=== PATIENT | female | born 1955 | race Caucasian/White ===

== ENCOUNTER 2022-01-08 22:27 | Inpatient (IN) ==
--- NOTE | 2022-01-08 22:56 | Emergency Department Note ---
History of Present Illness General Chief complaint: Dental/Oral Stated complaint: ROOT CANAL POST OP SWELLING Time Seen by Provider: 01/08/22 22:40 History of Present Illness This is a 66-year-old female that presents to the emergency department via private vehicle with complaints of "root canal, postop swelling". Patient notes that she had a routine follow-up with her dentist about 3 weeks ago. It was noted via x-ray that she had an abnormality to one of the roots of her teeth, tooth #6. She notes that shortly thereafter she developed swelling and an abscess was suspected. She was started on clindamycin and was on this for several days. She notes that she then saw the incinerator plant laborer and had a root canal on Tuesday. She notes that swelling then began to the area on Tuesday and she has been on clindamycin since Tuesday. She has not missed any doses. She is been compliant with his medication. She is concerned now because the amount of right-sided facial swelling. She notes some minor drainage into the mouth. No fevers or chills. She has never had this happen before. No pain with movement of the eyes. Home Medications Medication Instructions Recorded Confirmed Type metoprolol succinate 50 mg 50 mg PO DAILY #90 tab 01/26/21 01/08/22 Rx tablet,extended release 24 hr clindamycin HCl 300 mg capsule 300 mg PO TID 01/08/22 01/08/22 History Allergies Allergy/AdvReac Type Severity Reaction Status Date / Time latex Allergy Intermediate Redness of Verified 01/08/22 22:50 Skin lisinopril Allergy Intermediate Cough Verified 01/08/22 22:50 Penicillins Allergy Intermediate Rash Verified 01/08/22 22:50 verapamil Allergy Unknown CAN'T Verified 01/08/22 22:50 REMEMBER ISOPOTIN Allergy Intermediate Rash Uncoded 01/08/22 22:50 Past Med/Surg History Medical History History of panic attacks no meds Hypertension Migraine Osteoarthritis Surgical History History of cataract extraction Left eye 07/24/2018-Dr. Clayton History of rhinoplasty History of surgery cyst removed off scalp Family History (Updated 12/03/19 @ 15:46 by Yannick Garcia MD) Father Family history of diabetes mellitus Prostate cancer Hypertension Grandmother Family history of diabetes mellitus maternal great grandmother Mother Leukemia Denies family history of Ovarian cancer Breast cancer Colorectal cancer Colonic polyp Social History Smoking Status: Never smoker Second Hand Exposure: No; Hx Alcohol Use: No Hx Substance Use: No Preferred Language: Lithuanian Communication Ability: Effective Radiation Control Technician Required: No Beliefs That Will Affect Care: None Current Living Situation: Family Current Living Situation Comment: Single 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) Feels Safe at Home: Yes Seatbelt Use: always Assistive Devices: Contacts and Glasses Review of Systems A total of 10 systems reviewed and were otherwise negative Physical Exam Vital Signs Vital Signs - 24 hr 01/08/22 22:35 01/09/22 01:18 01/09/22 02:23 Temperature 36.9 C Temperature Source Temporal Artery Scan Pulse Rate 96 H Pulse Rate [Left Finger] 86 95 H Respiratory Rate 18 20 20 Blood Pressure 167/91 H Blood Pressure [Right Arm] 153/72 H 131/84 Blood Pressure Mean 116 Blood Pressure Mean [Right Arm] 99 99 Pulse Oximetry 96 96 97 Oxygen Delivery Method Room Air Room Air Sepsis Recent Fever Within 48 Hours No Sepsis New/Unexplained Change in Mental Status No Sepsis Action Taken by Nursing No Action Required VITAL SIGNS - Vital signs and nursing notes were reviewed. Hypertensive, otherwise stable. Afebrile. GENERAL -66-year-old female appearing her stated age who is in no acute distress. Communicates well with provider and answers questions appropriately. SKIN -large amount of right-sided facial swelling most pronounced overlying the right premaxillary soft tissues that extends to the right inferior eyelid region as well as the right upper lip. HEAD - NC/AT. EYES - PERRL with EOMI bilaterally. Sclera anicteric. Palpebral conjunctiva pink and moist with no injection noted. EARS - No deformities of external structures noted on gross examination bilaterally. No pain elicited with palpation of the tragus bilaterally. External auditory canals without discharge or otorrhea. Tympanic membranes pearly sandy without retraction or bulging. No fluid or purulent material visualized behind the TM. Handle of malleus, umbo, cone of light, pars tensa/flaccid all easily visualized. NOSE - Midline and without cyanosis. No epistaxis or purulent drainage noted. Septum midline without deviation or septal hematoma noted. MOUTH/OROPHARYNX - Without perioral cyanosis. Buccal mucosa pink and moist and without leukoplakia. Tongue midline with equal elevation of palate bilaterally. No tonsillar hypertrophy, erythema, or exudates noted. Good dentition noted. Evidence of abscess superior to tooth #6. NECK - Neck with FROM. Supple to palpation. No lymphadenopathy noted. No nuchal rigidity. LUNGS - Chest wall symmetric without accessory muscle use, intercostals retractions, or central cyanosis. Normal vesicular breath sounds CTA B/L. No wheezes, rales, or rhonchi appreciated. CARDIAC - RRR with S1/S2. No murmur, rubs, or gallops appreciated. EXTREMITIES - No clubbing or peripheral cyanosis. +5/5 strength noted in UE/LE bilaterally. NEUROLOGIC - Cranial nerves II through XII grossly intact. PSYCH - A&Ox3 and cooperates fully with examiner. Pt is very pleasant and interacts well with examiner. Course Administered Medications Discontinued Medications Ioversol (Optiray 320 100ml) 94 ml IV ONCE ONE Stop: 01/09/22 00:43 Last Admin: 01/09/22 00:42 Dose: 94 ml Documented by: [id number] Medical Decision Making Laboratory Data Result diagrams: 01/08/22 23:17 01/08/22 23:17 Lab Results 01/08/22 01/08/22 01/08/22 Range/Units 23:17 23:17 23:17 WBC 15.96 H (4.8-10.8) K/uL RBC 4.58 (4.2-5.4) M/uL Hgb 14.3 (12.0-16.0) g/dL Hct 43.3 (37-47) % MCV 94.5 (80-100) fL MCH 31.2 (25-34) pg MCHC 33.0 (32-36) g/dL RDW Std Deviation 46.0 (36.4-46.3) fL RDW Coeff of Lindsey 13.3 (11.5-14.5) % Plt Count 330 (130-400) K/uL MPV 10.9 H (7.4-10.4) fL Immature Gran % (Auto) 0.3 % Neut % (Auto) 77.8 % Lymph % (Auto) 14.1 % [place] % (Auto) 6.7 % Eos % (Auto) 0.9 % Baso % (Auto) 0.2 % Neut # (Auto) 12.43 H (1.4-6.5) K/uL Lymph # (Auto) 2.25 (1.2-3.4) K/uL [place] # (Auto) 1.07 H (0.11-0.59) K/uL Eos # (Auto) 0.14 (0-0.5) K/uL Baso # (Auto) 0.03 (0-0.2) K/uL Immature Gran # (Auto) 0.04 H (0.00-0.02) K/uL Sodium 135 L (136-145) mmol/L Potassium 4.1 (3.5-5.1) mmol/L Chloride 100 (98-107) mmol/L Carbon Dioxide 26 (21-32) mmol/L Anion Gap 9 (3-11) BUN 11 (6-23) mg/dl Creatinine 0.85 (0.6-1.2) mg/dl Est Cr Clr Drug Dosing 69.5 ml/min Est GFR ( Amer) 83.3 ml/min Est GFR (Non-Af Amer) 71.9 ml/min BUN/Creatinine Ratio 12.9 (10-20) Glucose 112 H (70-99(Fasting)) mg/dl Calcium 9.8 (8.5-10.1) mg/dl Total Bilirubin 0.5 (0.2-1.0) mg/dl AST 27 (13-39) U/L ALT 28 (7-52) U/L Alkaline Phosphatase 104 (34-104) U/L Total Protein 8.4 H (6.0-8.3) gm/dl Albumin 4.6 (3.4-5.0) gm/dl Globulin 3.8 (2.5-4.0) gm/dl Albumin/Globulin Ratio 1.2 (0.9-2) Procalcitonin < 0.05 (0-0.5) ng/ml SARS-CoV-2, RNA, NAAT (NEGATIVE) 01/09/22 Range/Units 01:15 WBC (4.8-10.8) K/uL RBC (4.2-5.4) M/uL Hgb (12.0-16.0) g/dL Hct (37-47) % MCV (80-100) fL MCH (25-34) pg MCHC (32-36) g/dL RDW Std Deviation (36.4-46.3) fL RDW Coeff of Lindsey (11.5-14.5) % Plt Count (130-400) K/uL MPV (7.4-10.4) fL Immature Gran % (Auto) % Neut % (Auto) % Lymph % (Auto) % [place] % (Auto) % Eos % (Auto) % Baso % (Auto) % Neut # (Auto) (1.4-6.5) K/uL Lymph # (Auto) (1.2-3.4) K/uL [place] # (Auto) (0.11-0.59) K/uL Eos # (Auto) (0-0.5) K/uL Baso # (Auto) (0-0.2) K/uL Immature Gran # (Auto) (0.00-0.02) K/uL Sodium (136-145) mmol/L Potassium (3.5-5.1) mmol/L Chloride (98-107) mmol/L Carbon Dioxide (21-32) mmol/L Anion Gap (3-11) BUN (6-23) mg/dl Creatinine (0.6-1.2) mg/dl Est Cr Clr Drug Dosing ml/min Est GFR ( Amer) ml/min Est GFR (Non-Af Amer) ml/min BUN/Creatinine Ratio (10-20) Glucose (70-99(Fasting)) mg/dl Calcium (8.5-10.1) mg/dl Total Bilirubin (0.2-1.0) mg/dl AST (13-39) U/L ALT (7-52) U/L Alkaline Phosphatase (34-104) U/L Total Protein (6.0-8.3) gm/dl Albumin (3.4-5.0) gm/dl Globulin (2.5-4.0) gm/dl Albumin/Globulin Ratio (0.9-2) Procalcitonin (0-0.5) ng/ml SARS-CoV-2, RNA, NAAT NEGATIVE (NEGATIVE) Imaging Data Radiologist's Impression: CT FACIAL: Subperiosteal/soft tissue abscess along the right anterior maxilla measuring 2.1 x 1.2 x 2.4 cm (axial image 45, coronal images 15-21). Surrounding right-sided facial cellulitis and soft tissue swelling. Abscess appears to extend from the right lateral maxillary incisor (tooth 7). No acute fractures. Mild mucosal thickening right maxillary sinus. Radiologist: Maricel Montes De Oca M.D. Study ready at 00:55 and initial results transmitted at 01:07 MDM Narrative Patient was seen and evaluated as above in room C07. Review was performed of nursing notes and vital signs. I did review pertinent previous visits and patient history. After obtaining a thorough history and physical examination the above work up was performed. Patient presents to us today for evaluation of right-sided facial swelling in the setting of recent dental procedure. Vital signs reveal hypertension. She is afebrile. No evidence of Ana's angina. No evidence of orbital cellulitis clinically. No evidence of meningitis or encephalitis. Options of care were discussed with the patient. She has a large amount of right-sided facial swelling likely of dental origin. Concern now is for facial cellulitis with underlying abscess. Labs reveal leukocytosis 15.96. No anemia. No emergent metabolic disturbance. Pro-Jovany normal. CT scan was felt to be warranted and obtained of the space with IV contrast. Results of this as above. Facial cellulitis noted. The patient's abscess spontaneously drained. I do believe that she would benefit from inpatient management noting that she is already been on oral antibiotics in the outpatient setting and now has progressive right-sided facial swelling clinically felt to be cellulitic. Case discussed with the hospitalist. Please refer to further documentation regarding her stay. Patient amenable to plan of care. I did discuss several antibiotic options with the patient as well as the hospitalist team. Hospitalist team will initiate further antibiotics beyond her current outpatient regimen. GCS: 15 In the evaluation and treatment of this patient the following differential diagnoses were entertained: Facial cellulitis, Junior's angina, abscess, among others. Impression & Plan Cellulitis of face, Dental abscess Discharge Plan Visit Data Chief Complaint: Dental/Oral Stated Complaint: ROOT CANAL POST OP SWELLING ED Provider: Latrell Will ED Midlevel Provider: Sharif Gomes Discharge Problem: Cellulitis of face, Dental abscess Patient Disposition: Admitted As Inpatient Condition: Good Forms Stand Alone Forms: My [facility] [employer] Prescriptions Prescriptions: No Action metoprolol succinate 50 mg tablet extended release 24 hr 50 mg PO DAILY Qty: 90 RF: 3 clindamycin HCl 300 mg capsule 300 mg PO TID RF: 0 Referrals Referrals: Yannick Garcia MD [Primary Care Provider] -
[2022-01-08 23:43] LABS: Basophils # (auto) 0.03 K/uL (0-0.2); Basophils % (auto) 0.2 %; Eosinophils # (auto) 0.14 K/uL (0-0.5); Eosinophils % (auto) 0.9 %; Hematocrit (blood only) 43.3 % (37-47); Hemoglobin 14.3 g/dL (12.0-16.0); Immature Granulocytes # (auto) 0.04 K/uL (0.00-0.02); Immature Granulocytes % (auto) 0.3 %; Lymphocytes # (auto) 2.25 K/uL (1.2-3.4); Lymphocytes % (auto) 14.1 %; Mean Corpuscular Hemoglobin 31.2 pg (25-34); Mean Corpuscular Volume 94.5 fL (80-100); Mean Platelet Volume 10.9 fL (7.4-10.4); Monocytes # (auto) 1.07 K/uL (0.11-0.59); Monocytes % (auto) 6.7 %; Neutrophils # (auto) 12.43 K/uL (1.4-6.5); Neutrophils % (auto) 77.8 %; Platelet Count 330 K/uL (130-400); RDW Coefficient of Variation 13.3 % (11.5-14.5); Red Blood Count 4.58 M/uL (4.2-5.4); White Blood Count 15.96 K/uL (4.8-10.8)
[2022-01-09 00:04] LABS: Albumin Globulin Ratio 1.2 (0.9-2); Albumin Level 4.6 gm/dl (3.4-5.0); BUN Creatinine Ratio 12.9 (10-20); Bilirubin,Total 0.5 mg/dl (0.2-1.0); Calcium 9.8 mg/dl (8.5-10.1); Creatinine Clr Calc Pharmacy 69.5 ml/min; Est GFR (African American) 83.3 ml/min; Est GFR (Non-African American) 71.9 ml/min; Globulin 3.8 gm/dl (2.5-4.0); Potassium 4.1 mmol/L (3.5-5.1); Total Protein 8.4 gm/dl (6.0-8.3)
[2022-01-09] MEDS ORDERED: OPTIRAY 320 100ml IV ONE (00:42)
--- NOTE | 2022-01-09 01:30 | History & Physical Report ---
Date of Service January 09, 2022 Assessment & Plan (1) Hypertension: (2) Abscess of maxilla: (3) Failure of outpatient treatment: Plan: Gricelda Aleman is a 66-year-old female with past medical history of hypertension and migraines who presented today due to right-sided facial swelling and pain. Found to have right maxillary abscess. Maxillary abscess Failed outpatient treatment with clindamycin orally CT of her face showed subperiosteal/soft tissue abscess along the right anterior maxilla measuring 2.1 x 1.2 x 2.4 cm. Surrounding right facial cellulitis and soft tissue swelling. Abscess appears to extend from right lateral maxillary incisor (tooth 7). No acute fractures. Mild mucosal thickening right maxillary sinus. Due to penicillin allergy will start on vancomycin and aztreonam IV Consult oral maxillofacial surgery N.p.o. for now, may take meds Pain control as needed Admit to med telemetry Hypertension Continue home metoprolol DVT prophylaxis: SCDs, hold chemoprophylaxis in case of surgical intervention Diet: NPO, NSS at 80 cc/h Dispo: Admit to med telemetry CODE STATUS: Full History of Present Illness Primary Care Provider: Yannick Garcia MD Gricelda Aleman is a 66-year-old female with past medical history of hypertension and migraines who presented today due to right-sided facial swelling and pain. Patient had seen her dentist about 3 weeks ago and was noted to have issues with the root of tooth #6 at that time. Shortly after, she developed pain and swelling of the area and was started on clindamycin. She then underwent root canal this past Tuesday. On Tuesday, again developed tooth pain and swelling and was restarted on clindamycin. Today, she continued to have worsening swelling and pain. In ED, patient's labs showed white count of 15.96, normal hemoglobin and platelets. She had normal electrolytes and negative COVID testing. A CT of her face showed subperiosteal/soft tissue abscess along the right anterior maxilla measuring 2.1 x 1.2 x 2.4 cm. Surrounding right facial cellulitis and soft tissue swelling. Abscess appears to extend from right lateral maxillary incisor (tooth 7). No acute fractures. Mild mucosal thickening right maxillary sinus. Patient states that she began to have drainage into her mouth during her CT. She has been spitting it out into a cup. Denies fever, chills, nausea, vomiting, shortness of breath, cough, abdominal pain, headache, dizziness, vision changes, eye pain, weakness, numbness. Allergies Allergy/AdvReac Type Severity Reaction Status Date / Time latex Allergy Intermediate Redness of Verified 01/08/22 22:50 Skin lisinopril Allergy Intermediate Cough Verified 01/08/22 22:50 Penicillins Allergy Intermediate Rash Verified 01/08/22 22:50 verapamil Allergy Unknown CAN'T Verified 01/08/22 22:50 REMEMBER ISOPOTIN Allergy Intermediate Rash Uncoded 01/08/22 22:50 Home Medications Medication Instructions Recorded Confirmed Type metoprolol succinate 50 mg 50 mg PO DAILY #90 tab 01/26/21 01/08/22 Rx tablet,extended release 24 hr clindamycin HCl 300 mg capsule 300 mg PO TID 01/08/22 01/08/22 History Past Med/Surg History Medical History History of panic attacks no meds Hypertension Migraine Osteoarthritis Surgical History History of cataract extraction Left eye 07/24/2018-Dr. Clayton History of rhinoplasty History of surgery cyst removed off scalp Family History (Updated 12/03/19 @ 15:46 by Yannick Garcia MD) Father Family history of diabetes mellitus Prostate cancer Hypertension Grandmother Family history of diabetes mellitus maternal great grandmother Mother Leukemia Denies family history of Ovarian cancer Breast cancer Colorectal cancer Colonic polyp Social History Smoking Status: Never smoker Second Hand Exposure: No; Hx Alcohol Use: No Hx Substance Use: No Preferred Language: Marshallese Communication Ability: Effective Motion Study Technician Required: No Beliefs That Will Affect Care: None Current Living Situation: Family Current Living Situation Comment: Single 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 NAD. HEENT: PERRL, EOMI. Moist mucous membranes. Right-sided facial swelling extending from lower eyelid to right upper lip including soft tissue overlying right maxillary area. Mouth with pink and moist oral mucosa, swelling along upper right gumline with scant drainage. NECK: No JVD. No lymphadenopathy. CHEST/LUNGS: CTAB A/P. No crackles, wheezes, rales, rhonchi. HEART: RRR. No m/g/r. ABDOMEN: NT/ND, soft. BS+ x4 EXTREMITIES: No cyanosis, no clubbing, no edema SKIN: Warm and dry. No rashes or lesions. PSYCHIATRIC: Euthymic affect, no SI, no pressured speech, no hallucinations NEUROLOGIC: No FND. CN II-XII grossly intact. Results & Data Results & Data ([facility]) Vital Signs (Past 12 Hours) Vital Signs Temp Pulse Pulse Resp BP BP Pulse Ox 01/09/22 01:18 86 20 153/72 H 96 01/08/22 22:35 36.9 C 96 H 18 167/91 H 96 Supervising Physician Co-Signing Physician Notes Attending addendum: I have physically seen this patient, have supervised the medical residents activities, and agree with the H&P unless as otherwise noted. Assessment and Plan: Right facial cellulitis/abscess- Failure of outpatient treatment with clindamycin pre and post root canal Penicillin allergy Placed on vancomycin IV and aztreonam IV NPO IV fluids Pain control as noted Consult maxillofacial surgery Hypertension- Continue metoprolol succinate 50 mg p.o. daily with hold parameters Remaining orders and notations as noted Resident Activity Tracking Resident Involvement: Resident Care Provided Care Provided: Adult Hospital Medicine
[2022-01-09] MEDS ORDERED: VANCOMYCIN CONSULT ACTIVE PRN (02:40)
[2022-01-09] MEDS ORDERED: ONDANSETRON INJ 2 MG/ML 2 ML VIAL IV PRN (02:40)
[2022-01-09] MEDS ORDERED: VANCOMYCIN HCL 1,750 MG in SODIUM CHLORIDE 0.9% 500 ML IV ONE (03:30)
[2022-01-09] MEDS: SODIUM CHLORIDE 0.9% 1000ML 1,000 ML IV SCH ×2 (03:45→16:43)
[2022-01-09] MEDS: AZTREONAM 1,000 MG in DEXTROSE 5% 100 ML IV SCH ×3 (04:25→19:44)
[2022-01-09] MEDS ORDERED: METOPROLOL SUCC 50MG EXT REL TAB PO SCH (09:00)
--- NOTE | 2022-01-09 09:53 | CT Scan Report ---
CT facial bones w con CLINICAL HISTORY: R side facial swelling, Tooth #6 root canal COMPARISON STUDY: No previous studies for comparison. CT DOSE: 697.98 mGy.cm TECHNIQUE: Standard CT of the Facial Bones and Orbits was performed with 94 mL of Optiray 320 IV con trast. A dose lowering technique was utilized adhering to the principles of ALARA. FINDINGS: Bones: There are no displaced fractures identified. The orbital rims are intact bilaterally. The zygo matic arches are intact bilaterally. Nasal bones are intact. The nasal septum is in the midline. The mandible and maxilla are intact. There is imaging artifact present related to dental fillings. Paranasal sinuses: There is mild mucosal thickening of the right maxillary antrum. The remaining para nasal sinuses are clear. Soft tissues: There is evidence for an irregular wall enhancing fluid collection adjacent to the righ t maxilla measuring approximately 1.4 x 1.9 x 1.7 cm in craniocaudad, AP and transverse diameters res pectively. This is most characteristic of an abscess. Surrounding cellulitis is present. IMPRESSION: 1. Evidence for a wall enhancing abscess adjacent to the right maxilla with surrounding cellulitis. 2. Mild mucosal thickening of the right maxillary antrum. ACT 112: Negative or not required by law. Electronically signed by: Jhonatan Plata M.D. 01/09/2022 9:51 AM
--- NOTE | 2022-01-09 11:24 | Hospitalist Progress Note ---
Date of Service January 09, 2022 Assessment & Plan (1) Abscess of maxilla: Plan: Patient had a recent dental procedure and developed an abscess. Treated outpatient with Clindamycin, however progressively worsened so she came to the hospital CT face showed Evidence of a wall enhancing abscess adjacent to the right maxilla with surrounding cellulitis. Overnight, patient said some abscess drained spontaneously will continue empiric antibiotics Maxillofacial surgery input will be appreciated (2) Cellulitis of face: Plan: Continue management as above (3) Hypertension: Plan: BP is under good control, 124/79 today continue home meds (4) Dental abscess: Plan: continue hospital management Admission and Anticipated Discharge Date Admission Date: January 09, 2022 Subjective patient seen and examined, says she had some abscess drain spontaneously yesterday Review of Systems Review of Systems: All systems reviewed are negative, apart from the ones contained in the history. Physical Exam Physical Exam: The patient is awake, alert and oriented 3, well developed and well nourished, normocephalic and atraumatic, lying in bed and in no acute distress. HEENT--maxillary swelling Neck--supple. No JVD. No bruits. Thyroid normal, trachea midline, no adenopathy. Heart--normal S1 and S2. No murmurs, rubs or gallops. Lungs--clear bilaterally, no respiratory distress, no accessory muscle use. Abdomen--normal bowel sounds and soft. Mild epigastric and left sided abdominal pain Extremities--no cyanosis or clubbing. No edema. Dermatologic--normal skin turgor, normal color, no abnormal lymph nodes, no rash. Neurologic--cranial nerves II through XII grossly intact. Rheumatologic--normal range of motion. Psychiatric--normal affect. Results & Data Results & Data ([facility]) Vital Signs (Past 12 Hours) Vital Signs Temp Pulse Pulse Resp BP BP BP 01/09/22 07:23 99.0 F 89 18 124/79 01/09/22 02:47 94 H 01/09/22 02:40 01/09/22 02:33 98.6 F 89 16 154/82 H 01/09/22 02:24 95 H 20 131/84 01/09/22 02:23 95 H 20 131/84 01/09/22 01:18 86 20 153/72 H Pulse Ox Pulse Ox 01/09/22 07:23 95 01/09/22 02:47 01/09/22 02:40 96 01/09/22 02:33 96 01/09/22 02:24 97 01/09/22 02:23 97 01/09/22 01:18 96 Laboratory Results Laboratory Results - last 24 hr 01/08/22 01/08/22 01/08/22 23:17 23:17 23:17 WBC 15.96 H RBC 4.58 Hgb 14.3 Hct 43.3 MCV 94.5 MCH 31.2 MCHC 33.0 RDW Std Deviation 46.0 RDW Coeff of Lindsey 13.3 Plt Count 330 MPV 10.9 H Immature Gran % (Auto) 0.3 Neut % (Auto) 77.8 Lymph % (Auto) 14.1 [place] % (Auto) 6.7 Eos % (Auto) 0.9 Baso % (Auto) 0.2 Neut # (Auto) 12.43 H Lymph # (Auto) 2.25 [place] # (Auto) 1.07 H Eos # (Auto) 0.14 Baso # (Auto) 0.03 Immature Gran # (Auto) 0.04 H Sodium 135 L Potassium 4.1 Chloride 100 Carbon Dioxide 26 Anion Gap 9 BUN 11 Creatinine 0.85 Est Cr Clr Drug Dosing 69.5 Est GFR ( Amer) 83.3 Est GFR (Non-Af Amer) 71.9 BUN/Creatinine Ratio 12.9 Glucose 112 H Calcium 9.8 Total Bilirubin 0.5 AST 27 ALT 28 Alkaline Phosphatase 104 Total Protein 8.4 H Albumin 4.6 Globulin 3.8 Albumin/Globulin Ratio 1.2 Procalcitonin < 0.05 SARS-CoV-2, RNA, NAAT 01/09/22 01:15 WBC RBC Hgb Hct MCV MCH MCHC RDW Std Deviation RDW Coeff of Lindsey Plt Count MPV Immature Gran % (Auto) Neut % (Auto) Lymph % (Auto) [place] % (Auto) Eos % (Auto) Baso % (Auto) Neut # (Auto) Lymph # (Auto) [place] # (Auto) Eos # (Auto) Baso # (Auto) Immature Gran # (Auto) Sodium Potassium Chloride Carbon Dioxide Anion Gap BUN Creatinine Est Cr Clr Drug Dosing Est GFR ( Amer) Est GFR (Non-Af Amer) BUN/Creatinine Ratio Glucose Calcium Total Bilirubin AST ALT Alkaline Phosphatase Total Protein Albumin Globulin Albumin/Globulin Ratio Procalcitonin SARS-CoV-2, RNA, NAAT NEGATIVE Diagnostic Findings Face CT 01/08/22 22:50 CT facial bones w con CLINICAL HISTORY: R side facial swelling, Tooth #6 root canal COMPARISON STUDY: No previous studies for comparison. CT DOSE: 697.98 mGy.cm TECHNIQUE: Standard CT of the Facial Bones and Orbits was performed with 94 mL of Optiray 320 IV contrast. A dose lowering technique was utilized adhering to the principles of ALARA. FINDINGS: Bones: There are no displaced fractures identified. The orbital rims are intact bilaterally. The zygomatic arches are intact bilaterally. Nasal bones are intact. The nasal septum is in the midline. The mandible and maxilla are intact. There is imaging artifact present related to dental fillings. Paranasal sinuses: There is mild mucosal thickening of the right maxillary antrum. The remaining paranasal sinuses are clear. Soft tissues: There is evidence for an irregular wall enhancing fluid collection adjacent to the right maxilla measuring approximately 1.4 x 1.9 x 1.7 cm in craniocaudad, AP and transverse diameters respectively. This is most characteristic of an abscess. Surrounding cellulitis is present. IMPRESSION: 1. Evidence for a wall enhancing abscess adjacent to the right maxilla with surrounding cellulitis. 2. Mild mucosal thickening of the right maxillary antrum. ACT 112: Negative or not required by law. Electronically signed by: Jhonatan Plata M.D. 01/09/2022 9:51 AM PG Care Time/CCT Total # of Minutes Spent Total Time Spent with Patient: Total time spent is greater than 50% in coordination of care (as documented) at patient's floor/unit and/or counseling patient: Coding Level of Care Code 99205 Subseq Hosp Care Lvl 2 Diagnoses Abscess of maxilla M27.2 Cellulitis of face L03.211 Hypertension I10 Dental abscess K04.7 Time Spent (min) 35
--- NOTE | 2022-01-09 11:30 | Pharmacy Report ---
Pharmacy Abx Initial Consult - Date of Service January 09, 2022 - Pharmacy Dosing Scope Date of Consult: 01/09 Consultation requested by: Dr. Olivera Pharmacy is consulted to initiate vancomycin IV/PO dosing therapy, order appropriate labs and adjust drug dose/frequency. - Subjective The patient is a 66 year old F admitted on 01/09/22 01:40. - Objective Height: 5 ft 7 in Weight: 74.1 kg Vital Signs (Past 12hrs): Vital Signs Temp Pulse Pulse Resp BP BP BP 01/09/22 07:23 37.2 C 89 18 124/79 01/09/22 02:47 94 H 01/09/22 02:40 01/09/22 02:33 37.0 C 89 16 154/82 H 01/09/22 02:24 95 H 20 131/84 01/09/22 02:23 95 H 20 131/84 01/09/22 01:18 86 20 153/72 H Pulse Ox Pulse Ox 01/09/22 07:23 95 01/09/22 02:47 01/09/22 02:40 96 01/09/22 02:33 96 01/09/22 02:24 97 01/09/22 02:23 97 01/09/22 01:18 96 Lab Results (24hrs): Laboratory Tests (24 Hours) 01/08/22 01/08/22 01/08/22 23:17 23:17 23:17 WBC 15.96 H Neut # (Auto) 12.43 H Creatinine 0.85 Est Cr Clr Drug Dosing 69.5 Procalcitonin < 0.05 - Assessment & Plan Assessment 66 year old F receiving vancomycin + Azactam for facial cellulitis Failed outpatient clindamycin therapy Surgery consulted Allergy to PCN (rxn: rash) Vanc + Azactam initiated Vancomycin Target AUC/LAURIE of 400-600 mg/L.hr * AUC/LAURIE is the preferred PK/PD target for vancomycin * AUC guided dosing is effective and associated with decreased risk of nephrotoxicity compared to traditional trough targets * Vancomycin 1g IV q12h will be started today at 1600 following vancomycin 1750mg load * Trough level ordered for 01/10 @1530 Azactam * Pharmacy not consulted but dosed appropriately given patient's indication/renal function Pharmacy will continue to follow and will adjust dose/frequency as necessary. Thank you.
[2022-01-09] MEDS: VANCOMYCIN HCL 1,000 MG in SODIUM CHLORIDE 0.9% 250 ML IV SCH (16:43)
[2022-01-09] MEDS: METOPROLOL SUCC 50MG EXT REL TAB PO SCH (17:29)
--- NOTE | 2022-01-09 20:38 | Billing Data ---
Date of Service January 09, 2022 Coding Level of Care Code 64298 Initial Inpt Care Lvl 3
[2022-01-10] MEDS: VANCOMYCIN HCL 1,000 MG in SODIUM CHLORIDE 0.9% 250 ML IV SCH (04:30)
[2022-01-10] MEDS: AZTREONAM 1,000 MG in DEXTROSE 5% 100 ML IV SCH ×2 (05:05→15:45)
[2022-01-10] MEDS: SODIUM CHLORIDE 0.9% 1000ML 1,000 ML IV SCH ×2 (05:12→20:30)
[2022-01-10 08:17] LABS: Basophils # (auto) 0.02 K/uL (0-0.2); Basophils % (auto) 0.3 %; Eosinophils % (auto) 2.7 %; Hematocrit (blood only) 37.6 % (37-47); Hemoglobin 12.3 g/dL (12.0-16.0); Immature Granulocytes # (auto) 0.01 K/uL (0.00-0.02); Immature Granulocytes % (auto) 0.1 %; Lymphocytes # (auto) 2.42 K/uL (1.2-3.4); Lymphocytes % (auto) 32.2 %; Mean Corpuscular Hemoglobin 30.6 pg (25-34); Mean Corpuscular Hgb Conc 32.7 g/dL (32-36); Mean Corpuscular Volume 93.5 fL (80-100); Monocytes # (auto) 0.67 K/uL (0.11-0.59); Monocytes % (auto) 8.9 %; Neutrophils % (auto) 55.8 %; Platelet Count 282 K/uL (130-400); RDW Coefficient of Variation 13.5 % (11.5-14.5); RDW Standard Deviation 46.7 fL (36.4-46.3); Red Blood Count 4.02 M/uL (4.2-5.4); White Blood Count 7.52 K/uL (4.8-10.8)
[2022-01-10 08:44] LABS: BUN Creatinine Ratio 16.4 (10-20); Calcium 8.6 mg/dl (8.5-10.1); Creatinine Clr Calc Pharmacy 74.7 ml/min; Est GFR (African American) 100.2 ml/min; Est GFR (Non-African American) 86.4 ml/min; Potassium 3.8 mmol/L (3.5-5.1)
--- NOTE | 2022-01-10 12:53 | Hospitalist Progress Note ---
Date of Service January 10, 2022 Assessment & Plan (1) Abscess of maxilla: Plan: Gricelda Aleman is a 66-year-old female with past medical history of hypertension and migraines who presented due to right-sided facial swelling and pain. Found to have right maxillary abscess. Maxillary abscess Failed outpatient treatment with clindamycin orally CT of her face showed subperiosteal/soft tissue abscess along the right anterior maxilla measuring 2.1 x 1.2 x 2.4 cm. Surrounding right facial cellulitis and soft tissue swelling. Abscess appears to extend from right lateral maxillary incisor (tooth 7). No acute fractures. Mild mucosal thickening right maxillary sinus. Due to penicillin allergy was started on vancomycin and aztreonam IV oral maxillofacial surgery consulted, pending evaluation No surgical intervention anticipated on holiday, patient is slightly improved since drainage n.p.o. at midnight Pain control as needed Admit to med telemetry Patient acutely improved following spontaneous drainage in ER, but does remain with swelling and scant drainage. We will continue IV antibiotics and OMFS consultation. Minimal anaerobe coverage with aztreonam. If worsening can add adjunct Flagyl for anaerobe coverage vs Levo Hypertension Continue home metoprolol DVT prophylaxis: SCDs, hold chemoprophylaxis in case of surgical intervention Diet: Clears, n.p.o. at midnight Dispo: Admit to med telemetry CODE STATUS: Full (2) Hypertension: (3) Failure of outpatient treatment: Admission and Anticipated Discharge Date Admission Date: January 09, 2022 Subjective Odette is seen at the bedside this morning. She has not had fever, chills, sweats, shortness of breath, difficulty breathing, wheezing overnight. She has had spontaneous drainage from her right upper tooth which has slowed/stopped since transfer from the ER. Reports the large amount of swelling is greatly reduced, but still somewhat present. She does not have facial tenderness or tenderness when biting down this morning. No trismus. She reports she is concerned given the severity of the initial infection, and would prefer cautious management. Does have a history of penicillin allergy, reports she had a skin rash which involved her neck, but not her lip/tongue. Review of Systems Review of Systems: All systems reviewed & are unremarkable except as noted in Subjective Physical Exam Physical Exam: General: A&Ox3. NAD. Cooperative. HEENT: Right facial swelling remains present underlying nasolabial fold, reportedly improved per patient, no overlying erythema. No tenderness on palpation. Oral exam shows scant purulence at the gumline of upper right canine with small amount expressed on firm facial palpation. Pulm: CTAB A&P. -wheezes, -rales, -rhonchi. Symmetrical chest rise. No increase in work of breathing. No respiratory distress. Cardiac: RRR, -mrg. Radial pulses intact and symmetrical. Abdominal: Nontender, nondistended, soft. BS present. Results & Data Results & Data ([facility]) Vital Signs (Past 12 Hours) Vital Signs Temp Pulse Pulse Resp BP BP Pulse Ox 01/10/22 11:59 36.9 C 81 18 134/63 95 01/10/22 08:20 82 01/10/22 06:29 36.9 C 85 18 128/76 94 01/10/22 02:29 36.8 C 85 18 134/80 95 PG Care Time/CCT Total # of Minutes Spent Total Time Spent with Patient: Total time spent is greater than 50% in coordination of care (as documented) at patient's floor/unit and/or counseling patient: Coding Level of Care Code 40728 Subseq Hosp Care Lvl 2 Diagnoses Hypertension I10 Abscess of maxilla M27.2 Failure of outpatient treatment Z78.9
[2022-01-10] MEDS ORDERED: cefTRIAXone SODIUM 2,000 MG in DEXTROSE 5% 50 ML IV SCH (14:00)
[2022-01-10] MEDS: metroNIDAZOLE 500 MG TAB PO SCH ×2 (14:01→20:29)
[2022-01-10] MEDS ORDERED: VANCOMYCIN TROUGH ONE (15:30)
[2022-01-10] MEDS: METOPROLOL SUCC 50MG EXT REL TAB PO SCH (15:45)
[2022-01-10] MEDS ORDERED: METOPROLOL SUCC 50MG EXT REL TAB PO SCH ×2 (18:30→21:00)
[2022-01-11] MEDS ORDERED: Nursing to Pharmacy Communication SCH (01:45)
[2022-01-11 06:01] LABS: Basophils # (auto) 0.02 K/uL (0-0.2); Basophils % (auto) 0.2 %; Eosinophils % (auto) 2.3 %; Hematocrit (blood only) 38.3 % (37-47); Hemoglobin 12.7 g/dL (12.0-16.0); Immature Granulocytes # (auto) 0.03 K/uL (0.00-0.02); Immature Granulocytes % (auto) 0.3 %; Lymphocytes # (auto) 2.83 K/uL (1.2-3.4); Mean Corpuscular Hemoglobin 30.9 pg (25-34); Mean Corpuscular Hgb Conc 33.2 g/dL (32-36); Mean Corpuscular Volume 93.2 fL (80-100); Mean Platelet Volume 10.2 fL (7.4-10.4); Monocytes # (auto) 0.69 K/uL (0.11-0.59); Monocytes % (auto) 7.8 %; Neutrophils # (auto) 5.08 K/uL (1.4-6.5); Neutrophils % (auto) 57.4 %; Platelet Count 304 K/uL (130-400); RDW Coefficient of Variation 13.2 % (11.5-14.5); RDW Standard Deviation 45.3 fL (36.4-46.3); Red Blood Count 4.11 M/uL (4.2-5.4); White Blood Count 8.85 K/uL (4.8-10.8)
[2022-01-11 06:38] LABS: BUN Creatinine Ratio 16.2 (10-20); Calcium 8.7 mg/dl (8.5-10.1); Creatinine Clr Calc Pharmacy 79.9 ml/min; Est GFR (African American) 98.5 ml/min; Potassium 3.7 mmol/L (3.5-5.1)
[2022-01-11] MEDS ORDERED: BENZOCAINE 20% (ORAJEL) 11.9 GM TUBE MT PRN (07:47)
[2022-01-11] MEDS: metroNIDAZOLE 500 MG TAB PO SCH (07:51)
[2022-01-11] MEDS: SODIUM CHLORIDE 0.9% 1000ML 1,000 ML IV SCH (07:52)
--- NOTE | 2022-01-11 12:28 | Discharge Summary ---
Date of Service January 11, 2022 Admission HPI Per Admitting Provider Gricelda Aleman is a 66-year-old female with past medical history of hypertension and migraines who presented today due to right-sided facial swelling and pain. Patient had seen her dentist about 3 weeks ago and was noted to have issues with the root of tooth #6 at that time. Shortly after, she developed pain and swelling of the area and was started on clindamycin. She then underwent root canal this past Tuesday. On Tuesday, again developed tooth pain and swelling and was restarted on clindamycin. Today, she continued to have worsening swelling and pain. In ED, patient's labs showed white count of 15.96, normal hemoglobin and platelets. She had normal electrolytes and negative COVID testing. A CT of her face showed subperiosteal/soft tissue abscess along the right anterior maxilla measuring 2.1 x 1.2 x 2.4 cm. Surrounding right facial cellulitis and soft tissue swelling. Abscess appears to extend from right lateral maxillary incisor (tooth 7). No acute fractures. Mild mucosal thickening right maxillary sinus. Patient states that she began to have drainage into her mouth during her CT. She has been spitting it out into a cup. Denies fever, chills, nausea, vomiting, shortness of breath, cough, abdominal pain, headache, dizziness, vision changes, eye pain, weakness, numbness. Principal Diagnosis Maxillary Abscess with spontaneous drainage Discharge Exam General: A&Ox3. NAD. Cooperative. HEENT: Trace Right facial swelling greatlyimproved, no overlying erythema. No tenderness on palpation. Oral exam without purulence/drainage Pulm: CTAB A&P. -wheezes, -rales, -rhonchi. Symmetrical chest rise. No increase in work of breathing. No respiratory distress. Cardiac: RRR, -mrg. Radial pulses intact and symmetrical. Abdominal: Nontender, nondistended, soft. BS present. Discharge Data Allergies Allergy/AdvReac Type Severity Reaction Status Date / Time latex Allergy Intermediate Redness of Verified 01/08/22 22:50 Skin lisinopril Allergy Intermediate Cough Verified 01/08/22 22:50 Penicillins Allergy Intermediate Rash Verified 01/08/22 22:50 verapamil Allergy Unknown CAN'T Verified 01/08/22 22:50 REMEMBER ISOPOTIN Allergy Intermediate Rash Uncoded 01/08/22 22:50 Consultations 01/09/22 01:30 ED Decision to Admit Stat 01/09/22 01:40 Consult Oromaxillofacial Surgery Routine Ordered Studies 01/08/22 22:50 CT facial bones w con Urgent Hospital Course (1) Abscess of maxilla: Gricelda Aleman is a 66-year-old female with past medical history of hypertension and migraines who presented due to right-sided facial swelling and pain. Found to have right maxillary abscess. Maxillary abscess Failed outpatient treatment with clindamycin orally CT of her face showed subperiosteal/soft tissue abscess along the right anterior maxilla measuring 2.1 x 1.2 x 2.4 cm. Surrounding right facial cellulitis and soft tissue swelling. Abscess appears to extend from right lateral maxillary incisor (tooth 7). No acute fractures. Mild mucosal thi ckening right maxillary sinus. Due to penicillin allergy was started on vancomycin and aztreonam IV. Patient was clinically improving and had spontaneous drainage of her abscess the first night of admission Case reviewed with oromaxillofacial surgery, patient did have spontaneous drainage of abscess and clinically improved on antibiotics. Was converted to Rocephin/Flagyl continue to improve, was discharged to complete 1 week of cefdinir/Flagyl with next day follow-up to OMFS No surgical intervention anticipated on holiday, patient is slightly improved since drainage Routine follow-up to PCP, should have repeat CBC/BMP in approximately 1 week Hypertension (2) Hypertension: (3) Failure of outpatient treatment: Total Time Total Time Spent Total Time Spent (In Minutes): Time spend day of discharge 35 minutes including direct patient care, documentation, review of labs and images, and coordination of care. Discharge Plan Discharge Items Patient Disposition: Home - Self-Care Reason For Visit: MAXILLARY ABSCESS Discharge Diagnosis: Maxillary Abscess Condition on Discharge: Good Activity: Per Instructions section Non-emergency contact: Primary Care Provider and Specialist Call non-emergency contact if: you have any medication questions, your symptoms worsen, your pain is not controlled and your pain is worsening Follow-up/Referrals: Yannick Garcia MD [Primary Care Provider] - Garland Thornton DMD [Physician] - Diet: Regular Addtl Attending Provider Instructions: You are seen in the hospital for a maxillary abscess following root canal. Your abscess spontaneously drained, and continue to improve on antibiotics. You porter ve been converted to oral antibiotics as noted below. Been prescribed an antibiotic, cefdinir. Please continue cefdinir 300 mg twice daily for 7 days. You have been prescribed an antibiotic, metronidazole (Flagyl). Please take Flagyl 500 mg 3 times daily for 7 days. Your abscess was spontaneously draining and did not require surgical intervention at the time of hospitalization. Your case was reviewed with oromaxillofacial surgery who did not recommend further surgical drainage. A follow-up appointment for reassessment is being scheduled for you with oral maxillofacial surgery, Dr. Garland Thornton. It is anticipated you will have an appointment tomorrow 01/12/2022 in his office for reassessment. You should receive a call to confirm this appointment, if you do not recieve a call please contact his office at [phone]. If you develop any new or worsening symptoms including fever, chills, sweats, chest pain, chest pressure, difficulty breathing, uncontrolled nausea/vomiting, rash, wheezing, passing out or nearly passing out, bleeding, black/bloody bowel movements, or other new or concerning symptoms please call your primary care physician, or call 911 for re-evaluation in the emergency department if you are very concerned. Pending Studies at Discharge: No Stand-Alone Forms: My [employer], Smoking Cessation Medications and DC Order Prescriptions: New metronidazole 500 mg Tablet 500 mg PO TID 7 Days Qty: 21 RF: 0 cefdinir 300 mg capsule 300 mg PO BID 7 Days Qty: 14 RF: 0 Discontinued metoprolol succinate 50 mg tablet extended release 24 hr 50 mg PO DAILY Qty: 90 RF: 3 clindamycin HCl 300 mg capsule 300 mg PO TID RF: 0 Discharge Orders: Discharge Order (Routine); Ordered 01/11/22 Ordered By: Jeremy Puri Admission Data Admit Date/Time: 01/09/22 01:40 Attending Provider: Jeremy Puri Admit Provider: Markus Olivera Primary Care Provider: Yannick Garcia Other Providers: Garland Thornton ; Bhupendra Rosa Coding Level of Care Code D/C DAY MANAGEMENT >30 MINS Diagnoses Abscess of maxilla M27.2 Hypertension I10 Failure of outpatient treatment Z78.9
--- NOTE | 2022-01-14 12:57 | Oral/Maxillofacial Consult ---
Date of Consultation January 14, 2022 History of Present Illness Reason for Consultation: follow up for facial swelling right side Attending Physician: Jeremy Puri MD History of Present Illness This was a phone consult between Dr Puri and myself Dr.Paul Puri, Called me on January 11 to discuss Mrs. Aleman. Case reviewed over the phone patient did have spontaneous drainage of abscess and clinically improved on antibiotics. Was converted to Rocephin/Flagyl continue to improve, will be discharged to complete 1 week of cefdinir/Flagyl We arranged follow up for January 13 in my office. No surgical intervention anticipated Routine follow-up to PCP, should have repeat CBC/BMP in approximately 1 week We both both agreed on the plan I will see Mrs. Aleman January 13 Allergies Allergy/AdvReac Type Severity Reaction Status Date / Time latex Allergy Intermediate Redness of Verified 01/12/22 15:56 Skin lisinopril Allergy Intermediate Cough Verified 01/12/22 15:56 Penicillins Allergy Intermediate Rash Verified 01/12/22 15:56 verapamil Allergy Unknown CAN'T Verified 01/12/22 15:56 REMEMBER ISOPOTIN Allergy Intermediate Rash Uncoded 01/12/22 15:56 Home Medications Medication Instructions Recorded Confirmed Type cefdinir 300 mg capsule 300 mg PO BID 7 Days #14 cap 01/11/22 01/12/22 Rx metronidazole 500 mg tablet 500 mg PO TID 7 Days #21 tab 01/11/22 01/12/22 Rx metoprolol succinate 50 mg 50 mg PO DAILY #90 tab 01/12/22 01/12/22 Rx tablet,extended release 24 hr Patient History Medical History (Updated 01/12/22 @ 15:57 by Ana Huff RN) Anemia History of panic attacks no meds Hypertension Migraine Osteoarthritis Surgical History History of cataract extraction Left eye 07/24/2018-Dr. Clayton History of rhinoplasty History of surgery cyst removed off scalp Family History (Updated 12/03/19 @ 15:46 by Yannick Garcia MD) Father Family history of diabetes mellitus Prostate cancer Hypertension Grandmother Family history of diabetes mellitus maternal great grandmother Mother Leukemia Denies family history of Ovarian cancer Breast cancer Colorectal cancer Colonic polyp Social History (Updated 01/12/22 @ 15:58 by Ana Huff RN) Smoking Status: Never smoker Second Hand Exposure: No; Hx Alcohol Use: No Hx Substance Use: No Preferred Language: Arabic Communication Ability: Effective Criminal Intelligence Analyst Required: No Beliefs That Will Affect Care: None marital status: Current Living Situation: Family Current Living Situation Comment: Single 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
--- NOTE | 2022-01-18 21:48 | Oral/Maxillofacial Consult ---
Date of Consultation Corrected consult date PHONE consultation January 11 2022 History of Present Illness Attending Physician: Jeremy Puri MD History of Present Illness Date of Consultation December History of Present Illness Reason for Consultation: follow up for facial swelling right side Attending Physician: Jeremy Puri MD History of Present Illness This was a phone consult between Dr Puri and myself Dr.Paul Puri, Called me on January 11 to discuss Mrs. Aleman. Case reviewed over the phone patient did have spontaneous drainage of abscess and clinically improved on antibiotics. Was converted to Rocephin/Flagyl continue to improve, will be discharged to complete 1 week of cefdinir/Flagyl We arranged follow up for January 13 in my office. No surgical intervention anticipated Routine follow-up to PCP, should have repeat CBC/BMP in approximately 1 week We both both agreed on the plan I will see Mrs. Aleman January 13 Allergies Allergy/AdvReac Type Severity Reaction Status Date / Time latex Allergy Intermediate Redness of Verified 01/12/22 15:56 Skin lisinopril Allergy Intermediate Cough Verified 01/12/22 15:56 Penicillins Allergy Intermediate Rash Verified 01/12/22 15:56 verapamil Allergy Unknown CAN'T Verified 01/12/22 15:56 REMEMBER ISOPOTIN Allergy Intermediate Rash Uncoded 01/12/22 15:56 Home Medications Medication Instructions Recorded Confirmed Type cefdinir 300 mg capsule 300 mg PO BID 7 Days #14 cap 01/11/22 2 Rx metronidazole 500 mg tablet 500 mg PO TID 7 Days #21 tab 01/11/22 Rx metoprolol succinate 50 mg 50 mg PO DAILY #90 tab 01/12/22 01/12/22 R x tablet,extended release 24 hr Patient History Medical History(Updated 01/12/22 @ 15:57 by Ana Huff RN) Anemia History of panic attacks no medsHypertension Migraine Osteoarthritis Surgical History History of cataract extraction Left eye 07/24/2018-Dr. Linn of rhinoplasty History of surgery cyst removed off scalp Family History(Updated 12/03/19 @ 15:46 by Yannick Garcia MD) Father Family history of diabetes mellitus Prostate cancer HypertensionGrandmother Family history of diabetes mellitus maternal great grandmotherMother LeukemiaDenies family history of Ovarian cancer Breast cancer Colorectal cancer Colonic polyp Social History(Updated 01/12/22 @ 15:58 by Ana Huff RN) Smoking Status: Never smoker Second Hand Exposure: No; Hx Alcohol Use: No Hx Substance Use: No Preferred Language: Micronesian Communication Ability: Effective College Dean Required: No Beliefs That Will Affect Care: None marital status: Current Living Situation: Family Current Living Situation Comment: Single 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 Draft = Not yet reviewed or approved by Medical Physician. Signed = Reviewed and approved by Medical Physician. Allergies Allergy/AdvReac Type Severity Reaction Status Date / Time latex Allergy Intermediate Redness of Verified 01/12/22 15:56 Skin lisinopril Allergy Intermediate Cough Verified 01/12/22 15:56 Penicillins Allergy Intermediate Rash Verified 01/12/22 15:56 verapamil Allergy Unknown CAN'T Verified 01/12/22 15:56 REMEMBER ISOPOTIN Allergy Intermediate Rash Uncoded 01/12/22 15:56 Home Medications Medication Instructions Recorded Confirmed Type metoprolol succinate 50 mg 50 mg PO DAILY #90 tab 01/12/22 01/12/22 Rx tablet,extended release 24 hr Patient History Medical History (Updated 01/12/22 @ 15:57 by Ana Huff RN) Anemia History of panic attacks no meds Hypertension Migraine Osteoarthritis Surgical History History of cataract extraction Left eye 07/24/2018-Dr. Clayton History of rhinoplasty History of surgery cyst removed off scalp Family History (Updated 12/03/19 @ 15:46 by Yannick Garcia MD) Father Family history of diabetes mellitus Prostate cancer Hypertension Grandmother Family history of diabetes mellitus maternal great grandmother Mother Leukemia Denies family history of Ovarian cancer Breast cancer Colorectal cancer Colonic polyp Social History (Updated 01/12/22 @ 15:58 by Ana Huff RN) Smoking Status: Never smoker Second Hand Exposure: No; Hx Alcohol Use: No Hx Substance Use: No Preferred Language: Micronesian Communication Ability: Effective College Dean Required: No Beliefs That Will Affect Care: None marital status: Current Living Situation: Family Current Living Situation Comment: Single 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
== END 2022-01-11 13:38 | disposition home or self-care (01) | DRG 158 ==
LOC: ED 22:27 → SUATTDRO 01-09 01:40 → 2N 01-09 01:40